=== PATIENT | female | born 1985 | race African-American/Black ===

== ENCOUNTER 2016-06-28 10:04 | Outpatient (CLI) | payer OTHER ==
[2016-06-28 10:19] LABS: PLATELET COUNT 384 K/uL (152-353)
[2016-06-28 10:43] LABS: POTASSIUM 3.8 mmol/L (3.6-5.2); SODIUM 139 mmol/L (136-145)
== END 2016-06-28 19:06 | disposition home or self-care (01) ==
LOC: LAB 10:04
PROVIDERS: Family Medicine
DX: R53.83 Other fatigue (principal); E03.8 Other specified hypothyroidism; E53.8 Deficiency of other specified B group vitamins; E55.9 Vitamin D deficiency, unspecified; E78.4 Other hyperlipidemia
CPT/HCPCS: 36415; 80053; 80061; 82306; 82607; 84443; 85027

== ENCOUNTER 2018-03-18 08:51 | Outpatient (CLI) | payer OTHER | END 2018-03-18 23:39 | disposition home or self-care (01) | LOC: RESP 08:51 | DX: G56.22 Lesion of ulnar nerve, left upper limb (principal) | CPT/HCPCS: 95885; 95911 ==

== ENCOUNTER 2018-07-11 16:16 | Outpatient (CLI) | payer OTHER ==
[2018-07-11 16:52] LABS: PLATELET COUNT 376 K/uL (152-353)
[2018-07-11 17:19] LABS: POTASSIUM 4.1 mmol/L (3.6-5.2)
== END 2018-07-11 23:20 | disposition home or self-care (01) ==
LOC: LAB 16:16
PROVIDERS: Family Medicine
DX: E55.9 Vitamin D deficiency, unspecified (principal); R53.83 Other fatigue
CPT/HCPCS: 80053; 82306; 84402; 84403; 84436; 84443; 84481; 85027; 86308

== ENCOUNTER 2018-07-16 16:24 | Outpatient (CLI) | payer OTHER | END 2018-07-16 19:16 | disposition home or self-care (01) | LOC: LABW 16:24 | DX: R63.5 Abnormal weight gain (principal) | CPT/HCPCS: 36415; 83880; 84439 ==

== ENCOUNTER 2019-08-06 13:01 | Inpatient (IN) | payer OTHER ==
[~2019-08-06] VITALS: Ht 160 cm; Wt 110.8 kg
[2019-08-06 14:19] VITALS: BP 129/80; TEMP 99.1; Ht 160 cm; Wt 110.8 kg
[2019-08-06 14:25] LABS: PLATELET COUNT 298 K/uL (152-353)
[2019-08-06 14:41] LABS: PARTIAL THROMBOPLASTIN TIME 27.8 SECONDS (24.5-33.6); POTASSIUM 2.7 mmol/L (3.6-5.2); SODIUM 138 mmol/L (136-145)
[2019-08-06 16:06] VITALS: BP 118/86; TEMP 98.3
[2019-08-06 20:00] VITALS: BP 122/64; TEMP 102.5
[2019-08-06 22:00] VITALS: BP 128/69; TEMP 100.2
[2019-08-07] VITALS (7 sets, daily range): BP systolic 102–118; BP diastolic 49–62; TEMP 98.3–102.8
[2019-08-07 05:22] LABS: PLATELET COUNT 233 K/uL (152-353)
[2019-08-07 05:42] LABS: POTASSIUM 2.9 mmol/L (3.6-5.2)
[2019-08-08] VITALS: BP 122/64; TEMP 99.2
[2019-08-08 04:00] VITALS: BP 145/97; TEMP 98.1
[2019-08-08 06:14] LABS: PLATELET COUNT 126 K/uL (152-353)
[2019-08-08 06:21] LABS: POTASSIUM 3.4 mmol/L (3.6-5.2)
[2019-08-08 08:00] VITALS: BP 105/53; TEMP 101.8
[2019-08-08 12:00] VITALS: BP 104/57; TEMP 98.4
[2019-08-08 16:00] VITALS: BP 104/57; TEMP 98.4
[2019-08-08 20:00] VITALS: BP 111/56; TEMP 99.9
[2019-08-09] VITALS: BP 122/53; TEMP 98.7
[2019-08-09 03:44] VITALS: BP 116/59; TEMP 98.4
[2019-08-09 08:00] VITALS: BP 100/51; TEMP 98.3
[2019-08-09 10:57] LABS: PLATELET COUNT 116 K/uL (152-353)
[2019-08-09 11:10] LABS: POTASSIUM 2.7 mmol/L (3.6-5.2)
[2019-08-09 12:00] VITALS: BP 90/73; TEMP 98.6
[2019-08-09 16:00] VITALS: BP 105/54; TEMP 98.2
[2019-08-09 20:00] VITALS: BP 106/57; TEMP 97.5
[2019-08-10 00:10] VITALS: BP 108/60; TEMP 97.8
[2019-08-10 04:00] VITALS: BP 111/72; TEMP 98.1
[2019-08-10 06:13] LABS: PLATELET COUNT 132 K/uL (152-353)
[2019-08-10 08:09] VITALS: BP 107/64; TEMP 98.3
[2019-08-10 12:23] VITALS: BP 114/64; TEMP 98
[2019-08-10 16:00] VITALS: BP 100/52; TEMP 98.3
[2019-08-10 20:00] VITALS: BP 113/77; TEMP 97.8
[2019-08-11] VITALS: BP 104/63; TEMP 97.9
[2019-08-11 04:00] VITALS: BP 104/57; TEMP 98.1
[2019-08-11 05:36] LABS: PLATELET COUNT 137 K/uL (152-353)
[2019-08-11 05:46] LABS: POTASSIUM 3.6 mmol/L (3.6-5.2)
[2019-08-11 08:00] VITALS: BP 112/62; TEMP 98.3
[2019-08-11 12:00] VITALS: BP 131/85; TEMP 98.5
[2019-08-11 16:00] VITALS: BP 115/80; TEMP 97.9
[2019-08-11 20:00] VITALS: BP 122/76; TEMP 97.7
[2019-08-12] VITALS: BP 114/75; TEMP 97.7
[2019-08-12 04:00] VITALS: BP 141/85; TEMP 98.2
[2019-08-12 05:40] LABS: PLATELET COUNT 151 K/uL (152-353)
[2019-08-12 06:00] LABS: POTASSIUM 3.5 mmol/L (3.6-5.2)
[2019-08-12 08:00] VITALS: BP 119/64; BP 145/90; TEMP 98.6
[2019-08-12 12:00] VITALS: BP 143/64; TEMP 98.2
== END 2019-08-12 16:20 | disposition home or self-care (01) | DRG 177 ==
LOC: MED/SURG 13:01
PROVIDERS: ADMIT Family Medicine
DX: U07.1 COVID-19 (principal); J18.8 Other pneumonia, unspecified organism; R09.02 Hypoxemia; F41.8 Other specified anxiety disorders; E66.8 Other obesity; R53.1 Weakness; D64.89 Other specified anemias; E87.6 Hypokalemia; D72.818 Other decreased white blood cell count; K21.0 Gastro-esophageal reflux disease with esophagitis; J02.0 Streptococcal pharyngitis
CPT/HCPCS: 36415; 36600; 80053; 80074; 81000; 82550; 82728; 82805; 83735; 84100; 84484; 85027; 85379; 85610; 85730; 87040; 87070; 87205; 87502; 87635; 87651; 93005; 94667; 94668; 94760; 96365; 96366; 96367; 96372; 96375; A9576; J0456; J1650; J1885; J1956; J2405; J2543; J2550; J2920; J3475; J3480; U0002

== ENCOUNTER 2019-11-23 10:16 | Outpatient (CLI) | payer OTHER ==
[2019-11-23 10:45] LABS: PLATELET COUNT 379 K/uL (152-353)
[2019-11-23 11:07] LABS: POTASSIUM 3.6 mmol/L (3.6-5.2)
== END 2019-11-23 19:10 | disposition home or self-care (01) ==
LOC: LABW 10:16
PROVIDERS: Nurse Practitioner Family
DX: R53.83 Other fatigue (principal); E55.9 Vitamin D deficiency, unspecified; E78.2 Mixed hyperlipidemia
CPT/HCPCS: 36415; 80053; 80061; 82306; 82607; 82670; 84402; 84403; 84436; 84443; 84481; 85027

== ENCOUNTER 2019-11-30 09:46 | Outpatient (CLI) | payer OTHER | END 2019-11-30 23:30 | disposition home or self-care (01) | LOC: RAD 09:46 | DX: R05 Cough (principal) ==

== ENCOUNTER 2019-12-21 10:02 | Outpatient (CLI) | payer OTHER ==
[2019-12-21 10:26] LABS: POTASSIUM 3.7 mmol/L (3.6-5.2)
== END 2019-12-21 22:28 | disposition home or self-care (01) ==
LOC: LABW 10:02
PROVIDERS: Nurse Practitioner Family
DX: R25.2 Cramp and spasm (principal)
CPT/HCPCS: 36415; 80053; 83735

== ENCOUNTER 2019-12-30 08:43 | Outpatient (CLI) | payer OTHER | END 2019-12-30 23:20 | disposition home or self-care (01) | LOC: RAD 08:43 | DX: M54.42 Lumbago with sciatica, left side (principal) ==

== ENCOUNTER 2020-01-18 09:36 | Outpatient (CLI) | payer OTHER | END 2020-01-18 23:13 | disposition home or self-care (01) | LOC: US 09:36 | PROVIDERS: ATTEND Family Medicine | DX: N64.4 Mastodynia (principal) ==

== ENCOUNTER 2020-06-01 17:14 | Emergency (ER) | payer OTHER ==
[~2020-06-01] VITALS: Ht 160 cm; Wt 103.9 kg
[2020-06-01 18:26] LABS: PLATELET COUNT 339 K/uL (152-353)
[2020-06-01 18:44] LABS: POTASSIUM 3.1 mmol/L (3.6-5.2); SODIUM 143 mmol/L (136-145)
[2020-06-01 19:07] VITALS: BP 151/85; TEMP 97.4
== END 2020-06-01 19:07 | disposition home or self-care (01) ==
LOC: ED 17:14
PROVIDERS: Family Medicine
DX: K21.9 Gastro-esophageal reflux disease without esophagitis (principal)
CPT/HCPCS: 36415; 80053; 82550; 83880; 84484; 85027; 85610; 85730; 93005; 99283

== ENCOUNTER 2020-06-02 15:22 | Outpatient (CLI) | payer OTHER | END 2020-06-02 21:37 | disposition home or self-care (01) | LOC: LABW 15:22 | PROVIDERS: ATTEND Nurse Practitioner Family | DX: R60.0 Localized edema (principal) | CPT/HCPCS: 36415; 85379 ==

== ENCOUNTER 2020-06-08 09:32 | Outpatient (CLI) | payer OTHER | END 2020-06-08 20:06 | disposition home or self-care (01) | LOC: RAD 09:32 | PROVIDERS: ATTEND Nurse Practitioner Family | DX: U07.1 COVID-19 (principal) ==